=== PATIENT | male | born 1945 | race Hispanic/Latino ===

== ENCOUNTER 2016-04-08 06:35 | Outpatient (CLI) | payer MEDICARE ==
--- NOTE | 2016-04-11 07:39 | Vascular Lab Report ---
MESENTERIC ARTERIAL DUPLEX Reason for exam: Abdominal pain Comments: The aorta is patent. Flow velocities are within normal limits. Minimal atherosclerotic change is identified. No aneurysmal dilatation is noted. The celiac artery is patent. Flow velocities are elevated. No evidence of obstruction is identified. The superior mesenteric artery is patent. Flow velocities are elevated. No evidence of obstruction is identified. A caloric challenge was given. The patient complain of pain during the period of observation afterword did not increase in intensity. The superior mesenteric artery was interrogated for approximately 20 minutes after the meal. Appropriate changes in flow velocities were observed. Impression: Elevated baseline velocity in the celiac and superior mesenteric arteries suggest stenosis. The mild velocity increase in postprandial state suggest the stenosis is not hemodynamically significant. Clinical correlation recommended followup CTA may be required.
== END 2016-04-08 06:36 | disposition home or self-care (01) ==
LOC: VAS 06:35
PROVIDERS: ATTEND Surgery Vascular Surgery
DX: R10.10 Upper abdominal pain, unspecified (principal)
CPT/HCPCS: 93979